=== PATIENT | male | born 1970 | race African-American/Black ===

== ENCOUNTER 2020-07-11 10:24 | Emergency (ER) | payer OTHER ==
[~2020-07-11] VITALS: Ht 172.7 cm; Wt 77.1 kg
[~2020-07-11 10:24] MED LIST: AMOX TR-K CLV1 EAC4 PO; ASPIR 8181 MG PO; AUGMENTIN 875-1 EACH PO; ELIQUIS5 MG PO; FLORANEX TABLE1 EACH PO; LINEZOLID600 MG PO; LOPRESSOR100 M1 PO; PREDNISONE 10 M10 MG PO; TOPROL XL100 MG PO; TRAMADOL 50 MG50 MG PO; VANCO1GM IV
--- NOTE | 2020-07-11 11:38 | EKG ---
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
[2020-07-11 11:42] LABS: ABSOLUTE NEUTROPHILS 11.4 thou/uL (1.4-8.2); BASOPHILS 0.6 % (0.0-2.0); EOSINOPHILS 0.8 % (0.0-3.0); HEMOGLOBIN 9.9 gm/dL (14.0-18.0); LYMPHOCYTES 9.8 % (24.0-44.0); MCH 27.3 pg (26.0-34.0); MCV 85.2 fL (80.0-100.0); MONOCYTES 6.3 % (1.0-8.0); PLATELET COUNT 250 thou/uL (150-400); POLYS 82.5 % (36.0-66.0); RBC 3.64 mil/uL (4.50-6.00); RDW 21.9 % (10.5-14.5); WBC 13.8 thou/uL (4.0-11.0)
[2020-07-11 11:50] LABS: ANION GAP 7 mmol/L (7-16); BUN 19 mg/dL (7-18); CALCIUM 8.5 mg/dL (8.5-10.1); CHLORIDE 105 mmol/L (98-107); CO2 31 mmol/L (21-32); CREATININE 1.2 mg/dL (0.7-1.3); GLUCOSE 91 mg/dL (74-106); POTASSIUM 4.6 mmol/L (3.5-5.1); SODIUM 143 mmol/L (136-145)
[2020-07-11 11:59] LABS: PROTIME 10.3 Seconds (9.3-11.4)
[2020-07-11 12:00] LABS: ALBUMIN 2.8 g/dL (3.4-5.0); SGOT 25 U/L (15-37); SGPT 20 U/L (30-65); TOTAL BILIRUBIN 0.8 mg/dL (0.2-1.0); TOTAL PROTEIN 6.4 g/dL (6.4-8.2); TROPONIN-I <0.06 ng/mL (<0.06)
[2020-07-11] MEDS ORDERED: MIRALAX17 GM PO (12:51)
[2020-07-11] MEDS ORDERED: NORCO 5-325 TA1 EAC2 PO (12:51)
[2020-07-11] MEDS ORDERED: AMOXICILLIN 50500 M1 PO (12:56)
[2020-07-11 13:08] VITALS: BP 148/93
[2020-07-11 13:13] LABS: ANISOCYTOSIS 2+; PLATELET ESTIMATE NORMAL
[2020-07-11 13:19] LABS: MACROCYTES 1+; MICROCYTES 1+
== END 2020-07-11 13:08 | disposition home or self-care (01) ==
LOC: ER 10:24
PROVIDERS: Physician Assistant
DX: M62.830 Muscle spasm of back (principal); R91.8 Other nonspecific abnormal finding of lung field; R10.13 Epigastric pain; R05 Cough; R07.89 Other chest pain; R10.2 Pelvic and perineal pain; Z79.899 Other long term (current) drug therapy

== ENCOUNTER 2020-07-22 16:59 | Emergency (ER) | payer OTHER ==
[~2020-07-22] VITALS: Ht 172.7 cm; Wt 77.1 kg
[~2020-07-22 16:59] MED LIST changes: +AMOXICILLIN 50500 M1 PO; +MIRALAX17 GM PO; +NORCO 5-325 TA1 EAC2 PO
[2020-07-22 19:08] LABS: ABSOLUTE NEUTROPHILS 10.1 thou/uL (1.4-8.2); BASOPHILS 0.2 % (0.0-2.0); HEMOGLOBIN 8.5 gm/dL (14.0-18.0); LYMPHOCYTES 7.8 % (24.0-44.0); MCH 26.2 pg (26.0-34.0); MCHC 31.4 g/dL (28.0-37.0); MCV 83.5 fL (80.0-100.0); MONOCYTES 2.8 % (1.0-8.0); PLATELET COUNT 372 thou/uL (150-400); POLYS 89.2 % (36.0-66.0); RBC 3.23 mil/uL (4.50-6.00); RDW 22.5 % (10.5-14.5); WBC 11.3 thou/uL (4.0-11.0)
[2020-07-22 19:09] LABS: CALCIUM 8.9 mg/dL (8.5-10.1); CREATININE 1.1 mg/dL (0.7-1.3); POTASSIUM 4.1 mmol/L (3.5-5.1)
[2020-07-22 19:14] LABS: ALBUMIN 2.5 g/dL (3.4-5.0); TOTAL BILIRUBIN 0.6 mg/dL (0.2-1.0); TOTAL PROTEIN 6.7 g/dL (6.4-8.2)
[2020-07-22 21:24] VITALS: BP 122/74
== END 2020-07-22 21:24 | disposition home or self-care (01) ==
LOC: ER 16:59
PROVIDERS: Physician Assistant
DX: R91.8 Other nonspecific abnormal finding of lung field (principal); D64.9 Anemia, unspecified; R04.2 Hemoptysis; Z79.899 Other long term (current) drug therapy

== ENCOUNTER 2020-08-02 15:17 | Inpatient (IN) | payer OTHER ==
[~2020-08-02] VITALS: Ht 172.7 cm; Wt 77.1 kg
[2020-08-02 15:30] VITALS: BP 93/75
[2020-08-02 16:05] LABS: HEMOGLOBIN 6.9 gm/dL (14.0-18.0)
[2020-08-02 16:07] LABS: HEMATOCRIT 22.1 % (42.0-52.0); MCH 24.9 pg (26.0-34.0); MCHC 31.1 g/dL (28.0-37.0); MCV 80.1 fL (80.0-100.0); PLATELET COUNT 607 thou/uL (150-400); RBC 2.77 mil/uL (4.50-6.00); RDW 22.6 % (10.5-14.5); WBC 13.1 thou/uL (4.0-11.0)
[2020-08-02 16:15] LABS: CALCIUM 8.7 mg/dL (8.5-10.1); CREATININE 1.4 mg/dL (0.7-1.3); POTASSIUM 3.9 mmol/L (3.5-5.1)
[2020-08-02 16:19] LABS: APTT 22.2 Seconds (24.5-32.8); INR 1.1; PROTIME 10.7 Seconds (9.3-11.4)
[2020-08-02 16:21] LABS: ALBUMIN 2.2 g/dL (3.4-5.0); TOTAL BILIRUBIN 0.5 mg/dL (0.2-1.0)
[2020-08-02 16:24] LABS: ABSOLUTE NEUTROPHILS 8.9 thou/uL (1.4-8.2); ANISOCYTOSIS 2+; HYPOCHROMASIA 2+; MICROCYTES 2+; NUCLEATED RBCS 1 /100WBC; PLATELET ESTIMATE INCREASED; POLYCHROMASIA SLIGHT
[2020-08-02 18:56] VITALS: BP 126/69
[2020-08-02 19:31] VITALS: BP 115/65
[2020-08-02 20:00] VITALS: BP 133/77
[2020-08-02 21:52] VITALS: BP 115/73; BP 124/76
[2020-08-03] VITALS (8 sets, daily range): BP systolic 108–130; BP diastolic 59–76
[2020-08-03 05:06] LABS: CALCIUM 8.1 mg/dL (8.5-10.1); CREATININE 1.1 mg/dL (0.7-1.3); POTASSIUM 4.2 mmol/L (3.5-5.1)
[2020-08-03 05:14] LABS: HEMATOCRIT 21.7 % (42.0-52.0); HEMOGLOBIN 7.1 gm/dL (14.0-18.0); MCH 26.2 pg (26.0-34.0); MCHC 32.5 g/dL (28.0-37.0); MCV 80.5 fL (80.0-100.0); RBC 2.7 mil/uL (4.50-6.00); RDW 21.9 % (10.5-14.5); WBC 14.8 thou/uL (4.0-11.0)
[2020-08-03 23:55] LABS: HEMOGLOBIN 6.8 gm/dL (14.0-18.0)
[2020-08-04 01:23] VITALS: BP 109/52; BP 91/61; BP 97/61
[2020-08-04 04:00] VITALS: BP 91/61
[2020-08-04 05:06] LABS: HEMOGLOBIN 7.7 gm/dL (14.0-18.0); MCH 25.7 pg (26.0-34.0); MCHC 30.7 g/dL (28.0-37.0); MCV 83.7 fL (80.0-100.0); RBC 2.99 mil/uL (4.50-6.00); RDW 21.9 % (10.5-14.5); WBC 13.6 thou/uL (4.0-11.0)
[2020-08-04 07:50] VITALS: BP 104/48
[2020-08-04 12:00] VITALS: BP 132/63
[2020-08-04 15:33] VITALS: BP 144/68
[2020-08-04 20:06] VITALS: BP 118/66
[2020-08-05] VITALS (10 sets, daily range): BP systolic 105–135; BP diastolic 48–83
[2020-08-05 04:06] LABS: HEMATOCRIT 23.7 % (42.0-52.0); HEMOGLOBIN 7.4 gm/dL (14.0-18.0); MCH 25.8 pg (26.0-34.0); MCHC 31.1 g/dL (28.0-37.0); MCV 82.8 fL (80.0-100.0); RBC 2.87 mil/uL (4.50-6.00); RDW 21.8 % (10.5-14.5); WBC 13.5 thou/uL (4.0-11.0)
[2020-08-05 04:09] LABS: CALCIUM 8.2 mg/dL (8.5-10.1); POTASSIUM 4.1 mmol/L (3.5-5.1)
--- NOTE | 2020-08-05 07:29 | EKG ---
[facility] [place] [address] ELECTROCARDIOGRAM REPORT Name: SHA RODRIGUEZ Room #: 200-I ADM IN M.R.#: [id number] Admission: 08/02/20 Attend Phys: Oscar Davis MD Discharge: Date of : 74 Report #: [id number] THIS REPORT FOR: cc: MICHAEL Salcedo family physician/PCP MICHAEL - Denisse family physician/PCP Kan Fuchs MD [facility] THIS REPORT FOR: //name// [facility] [place] ED Test Date: 2020-08-02 Test Time: 15:27:54 Pat Name: SHA RODRIGUEZ Department: Room: [facility] Gender: M Applications Support Specialist: boubacar : 1970 Requested By: Angela Hernandez Order Number: [id number] MD: Kan Fuchs Measurements Intervals [place] Rate: 115 P: 40 HI: 153 QRS: 56 QRSD: 79 T: 56 QT: 290 QTc: 401 Interpretive Statements Sinus tachycardia Probable left atrial enlargement Baseline wander in lead(s) II,aVR,V4,V6 Compared to ECG 07/11/2020 10:28:21 T-wave abnormality no longer present Electronically Signed On 08-05-2020 7:29:02 VEGETABLE II FARMWORKER by Kan Fuchs [email or web address] <ELECTRONICALLY SIGNED> By: Kan Fuchs MD, FACC 08/05/20 0729 1527 1527 Kan Fuchs MD, FAC /EPI
[2020-08-06 05:27] VITALS: BP 134/71
[2020-08-06 07:20] VITALS: BP 140/79
[2020-08-06 11:01] LABS: HEMOGLOBIN 7.2 gm/dL (14.0-18.0)
[2020-08-06 11:13] LABS: % SATURATION 8 % (20-39); IRON 11 ug/dL (65-175); TIBC 135 ug/dL (250-450)
[2020-08-06 11:41] LABS: FOLIC ACID 7.8 ng/mL (8.6-58.9)
[2020-08-06 11:49] VITALS: BP 124/78
[2020-08-06 16:02] VITALS: BP 146/95
[2020-08-06 16:07] VITALS: BP 140/70
[2020-08-06 19:04] VITALS: BP 168/99
[2020-08-07 05:46] LABS: HEMATOCRIT 22.2 % (42.0-52.0); HEMOGLOBIN 7.2 gm/dL (14.0-18.0); MCH 26.3 pg (26.0-34.0); MCHC 32.2 g/dL (28.0-37.0); MCV 81.7 fL (80.0-100.0); RBC 2.72 mil/uL (4.50-6.00); RDW 21.9 % (10.5-14.5); WBC 13.2 thou/uL (4.0-11.0)
[2020-08-07 06:29] VITALS: BP 152/69
--- NOTE | 2020-08-07 08:05 | HC ---
[facility] [place] [address] CONSULTATION Name: SHA RODRIGUEZ Room #: 200-I ADM IN M.R.#: [id number] Admission: 08/02/20 Attend Phys: Oscar Davis MD Discharge: Date of : 74 Report #: [id number] THIS REPORT FOR: cc: FAM - No family physician/PCP FAM - No family physician/PCP Skyler Shirley MD ~ DATE OF SERVICE: 08/06/2020 REQUESTING PHYSICIAN: Dr. Oscar Davis. REASON FOR CONSULTATION: Bilateral pulmonary masses. 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 When seen at [facility], was found to have bilateral pulmonary masses. He has undergone a number of different procedures with no findings of malignancies or infectious or other etiology of the pulmonary masses. He was admitted to [facility] for further workup. He did a CT guided biopsy of one of the large masses yesterday. He had had a PET scan as an outpatient. This was done on July 31 and he was found to have multiple areas of intensive SUV activity corresponding to some multiple large masses throughout both his left and right thorax consistent with extensive disease. No evidence of acute abnormal uptake in the abdomen or pelvis. Enlarged lymph node in the proximal right thigh consistent with a metastatic deposit. The patient also had concern of possible endocarditis at the outside hospital with original echocardiogram, questionable leaflet note that his cultures were negative the whole time he was at [facility]. Note, he also did have a right femoral DVT and IVC filter placed. I also noted and reviewed labs from [facility] with his folate and B12 and iron were all low. We will repeat those. I do not think he has had replacement when looking at his medications here. PAST MEDICAL HISTORY: Notable for the recent bilateral pulmonary masses, the hemoptysis, melena thought secondary to hemoptysis, but appears to be possible B12, folate and iron deficiency at the other hospital. Also, the concern of endocarditis, but the cultures were negative and the [facility] only saw small possible vegetation. SOCIAL HISTORY: The patient reports work being from [employer]. 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 No street drugs. FAMILY HISTORY: No one else with unusual malignancies by his report today. He does have, I think, he has had 3 children, also several grandchildren. [facility] [address] [place] [address] CONSULTATION Name: SHA RODRIGUEZ Room #: 200-I ADM IN [facility]#: [id number] Admission: 08/02/20 Attend Phys: Oscar Davis MD Discharge: Date of : 74 Report #: [id number] MEDICATIONS: Today, currently include Zosyn 3.375 IV q.8 hours, pantoprazole 80 q.10 hours, metoprolol 50 b.i.d., Tylenol p.r.n., MiraLax p.r.n., Zofran p.r.n., codeine sulfate p.r.n. PHYSICAL EXAMINATION: GENERAL: The patient appears his stated age. VITAL SIGNS: 5 feet 8 inches, 172.7 cm, weight 175 pounds, 79.4 kilograms. NEUROLOGIC: He is alert and oriented. Speech and thought pattern normal. Moving extremities. ABDOMEN: Slightly obese. LYMPHATICS: No enlarged lymph nodes in the supraclavicular, cervical, axillary or inguinal region. ASSESSMENT AND PLAN: 1. Bilateral pulmonary masses of unknown etiology, underwent biopsy yesterday. We will await results. Malignancies in the differential, but it has been surprised that no malignancy has been found on recent procedures. Note, the patient also has the thigh lymph node to watch. 2. History report of right femoral DVT with IVC filter at [facility]. 3. Hemoptysis followed by Pulmonary. 4. Melena, likely secondary to swelling from hemoptysis. 5. Concern of B12, folate and iron deficiency at [facility]. We will check labs here and if low, we will replace. We will follow with you. <ELECTRONICALLY SIGNED> By: Skyler Shirley MD 08/07/20804 58 Skyler Shirley MD /nt
[2020-08-07 08:28] VITALS: BP 146/99
[2020-08-07 11:59] VITALS: BP 121/81
[2020-08-07 15:46] VITALS: BP 134/87
[2020-08-07 20:00] VITALS: BP 150/78
[2020-08-08 03:30] VITALS: BP 148/98
[2020-08-08 08:23] VITALS: BP 137/98
[2020-08-08] MEDS ORDERED: LOPRESSOR50 PO (08:34)
[2020-08-08] MEDS ORDERED: AMOX TR-K CLV1 EAC4 PO (08:34)
[2020-08-08] MEDS ORDERED: PREDNISONE 5 MG5 M1 PO (08:35)
[2020-08-08] MEDS ORDERED: HYDROCODON-ACE1 EAC7 PO (08:35)
[2020-08-08 11:04] VITALS: BP 149/100
[2020-08-08 11:38] VITALS: BP 149/100
--- NOTE | 2020-08-09 18:06 | PATH ---
[facility] [address] [place] [address] PATHOLOGY RPT PROCEDURE Name: SHA RODRIGUEZ Room #: 200-I [facility] IN M.R.#: [id number] Admission: 08/02/20 Date of : 74 Discharge: 08/08/20 Report #: [id number] Path Case #: [id number] [facility] Accession Number: [id number] . 01 Material submitted: . lung - LUNG . 01 Clinical history: . 49-YEAR-OLD MALE WITH A 4-MONTH HISTORY OF HEMOPTYSIS AND BILATERAL LUNG INFILTRATES. 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 PREVIOUS BRONCHOSCOPIC BIOPSY WAS NEGATIVE FOR NEOPLASM, AND SHOWED ACUTE AND CHRONIC INFLAMMATION, WITH BLOOD, FIBRIN AND NECROSIS. . . . 02 Diagnosis: Lung "left", CT-guided needle biopsy: - Alveolar lung parenchyma with acute capillaritis, with focal areas of lymphoplasmacytic inflammation, focal areas of intra-alveolar hemorrhage, hemosiderin-laden macrophages deposition, focal coagulative necrosis and interstitial fibrosis - Please see comment below. (CECE:velma; 08/07/2020) . 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 The biopsy will be forwarded to the pulmonary section at the [facility] for further refinement of the diagnosis. . The findings are conveyed to Dr. Keith Muller on 08/07/2020. MBR 08/07/2020 1423 Local . 02 Addendum: . Special studies report received from [facility], [address] [place] [address], [address], [place], [address], on case [id number], labeled with their number [id number], dated 08/08/2020. . Flow Cytometry: Hematologic Neoplasia Assessment . Clinical History Evaluation for hematolymphoid neoplasia . Indication for Study Evaluation for hematolymphoid neoplasia . Specimen [address] [address] PATHOLOGY RPT PROCEDURE Name: RODRIGUEZSHA Room #: 200-I DIS IN M.R.#: [id number] Admission: 08/02/20 Date of : 74 Discharge: 08/08/20 Report #: [id number] Path Case #: [id number] Tissue, Lung . Viability 43% (7AAD exclusion) . Interpretation Tissue, Lung: - Limited sample with a minute population of B-cells (approximately 0.15) with kappa light chain excess (limited due to low cell yield and reduced viability)(see comment). . Comments Flow study detected a minute B-cell population (approximately 0.15%) with kappa light chain excess. The significance of this is not clear as there are literally 12 events and these findings may be due to small population size. However, this is a limited sample due to low cell yield and reduced viability therefore these findings should be interpreted with caution. Non-hematolymphoid neoplasms, Hodgkin lymphoma, some large cell lymphomas, and some T-cell lymphomas cannot be excluded based solely on flow cytometric analysis data. Correlation with available clinical, laboratory, and morphologic/immunohistochemical analysis is recommended for an accurate diagnosis. . Populations Analyzed Lymphocytes: 3% B-cells: kappa light chain excess, however there are very few events detected, significance is not clear T-cells: could not be evaluated Neutrophilic cells: 16% Present CD45 Negative 81% No significant reactivity with the markers Events/Debris: tested (may represent non-hematolymphoid cells, degenerated cells, debris, unlysed red blood cells, etc.) . Morphologic Evaluation A slide was reviewed for senior quality analyst purposes only. . Specimen Description Cell Yield: 0.06 x 10 and 6 Due to low cell count, the lab is unable to provide an accurate cell yield. A limited panel of antibodies was performed. Flow cytometry data needs to be interpreted within the context of all clinical, laboratory, and morphologic information. . Pertinent Prior Test Results Received Date Test Type Specimen Type Result 06/27/2020 Flow Cytometry Bone Marrow Result Number: [id number] Bone Marrow Aspirate: [address] [address] PATHOLOGY RPT PROCEDURE Name: SHA RODRIGUEZ Room #: 200-I DIS IN M.R.#: [id number] Admission: 08/02/20 Date of : 74 Discharge: 08/08/20 Report #: [id number] Path Case #: [id number] - No evidence for abnormal myeloid maturation or an increased blast population. - No evidence for a B-cell or T-cell lymphoproliferative disorder. - Partial CD56 expression in monocytes. 06/27/2020 Cytogenetics Bone Marrow Result Number: [id number] Result: Normal Male Karyotype 46,XY(20) . . Reagent(s) Used CD5, CD10, CD19, CD20, CD45, kappa, lambda . . at [facility] Darrell Waldron MD Pathologist . . Intended Use Flow cytometry is optimally used to immunophenotypically characterize abnormal populations when they are detected. Negative flow cytometry results do not exclude lymphoma or neoplasia. Possible false negative flow cytometry results may occur in, but are not limited to, the following: neoplastic cells in Hodgkin lymphoma are not typically adequately represented by routine clinical flow cytometry; neoplastic cells may be lost or inadequately represented due to degeneration, sample processing, sampling artifact, or patchy involvement; plasma cells are typically underrepresented by flow cytometry; immature cells/blasts may be underrepresented due to hemodilution; myeloproliferative disorders and low grade myelodysplasia may not have immunophenotypic abnormalities or increased blasts. Correlation with all available clinical, laboratory, and morphologic data is always necessary to assess for the possibility of false negative flow cytometry results and to establish a diagnosis. Each marker in this analysis was used to assess for potential antigenic abnormalities or to evaluate detected abnormalities. . Any image or images that accompany this report are pharmaceutical sales representative images only and should not be used to render a diagnosis. . Disclaimer(s) This test was developed and its performance characteristics determined by [facility] It has not been cleared or approved by the Food and Drug Administration. [address] [address] PATHOLOGY RPT PROCEDURE Name: SHA RODRIGUEZ Room #: 200-I DIS IN M.R.#: [id number] Admission: 08/02/20 Date of : 74 Discharge: 08/08/20 Report #: [id number] Path Case #: [id number] . [facility] is a business unit of [employer] a wholly-owned subsidiary of [employer]. . This test was performed at [facility]. at [address], [address] - [address]: Juan Godoy MD. . For inquiries, the physician may contact Lab: [phone] . A complete copy of the report is on file. . Professional services performed by [facility]. at [address], [place] [address]. Technical services performed by [employer]. at [address], [place] [address]. . (MLK:shira 08/08/2020) . AZJ/08/08/2020 Addendum Electronically Signed by Saba Callejas MD, Pathologist . 02 Electronically signed: . Saba Callejas MD, Pathologist NPI- [id number] . 01 Gross description: . The specimen is received in formalin, labeled "Sha Rodriguez, lung". Received are three needle cores of pale lu soft tissue ranging in length from 0.2 to 0.9 cm in length by 0.1 cm in diameter. The specimen is submitted entirely in cassette A1 through A3. A portion of the specimen is received in RPMI solution and is forwarded on for flow cytometry studies. (CAA; 08/06/2020) QAC/QA 08/06/2020 1150 Local . 02 Pathologist provided ICD-10: J18.9, J84.10, J85.0 . 02 CPT . 382834 Specimen Comment: A courtesy copy of this report has been sent to [phone] Specimen Comment: [phone] Specimen Comment: Report sent to / DR STONER Performed at: 01 [facility] [address] [place] [address] PATHOLOGY RPT PROCEDURE Name: SHA RODRIGUEZ Room #: 200-I DIS IN M.R.#: [id number] Admission: 08/02/20 Date of : 74 Discharge: 08/08/20 Report #: [id number] Path Case #: [id number] [address], [place], [place] [id number] MD Tadeo Esquivel MD Phone: [phone] Performed at: [address] [id number] MD Nai Hernandez MD Phone: [phone]
== END 2020-08-08 16:21 | disposition home or self-care (01) | DRG 378 ==
LOC: ER 15:17 → EROBS 17:20 → 2N 19:35
PROVIDERS: Hospitalist; Internal Medicine Hematology & Oncology; Internal Medicine Pulmonary Disease; Nurse Practitioner; Nurse Practitioner Family; Physician Assistant; ADMIT Hospitalist; ATTEND Hospitalist
PROC: 30233N1 Transfusion of Nonautologous Red Blood Cells into Peripheral Vein, Percutaneous Approach (ICD-10-PCS; principal; 2020-08-02)
PROC: 0BBM3ZX Excision of Bilateral Lungs, Percutaneous Approach, Diagnostic (ICD-10-PCS; 2020-08-05)
DX: K92.2 Gastrointestinal hemorrhage, unspecified (principal); R04.2 Hemoptysis; D62 Acute posthemorrhagic anemia; I77.6 Arteritis, unspecified; R91.8 Other nonspecific abnormal finding of lung field; I78.8 Other diseases of capillaries; D49.1 Neoplasm of unspecified behavior of respiratory system; Z86.718 Personal history of other venous thrombosis and embolism; Z95.828 Presence of other vascular implants and grafts; Z79.899 Other long term (current) drug therapy
CPT/HCPCS: 10081